=== PATIENT | male | born 1980 | race Two or more races ===

== ENCOUNTER 2023-08-26 22:08 | Emergency (ER) | payer BC, OTHER ==
[~2023-08-26] VITALS: Ht 175.3 cm; Wt 124.0 kg
[2023-08-26] MEDS: cloNIDine HCL 0.1 MG TAB PO ONE (22:34)
[2023-08-27] MEDS ORDERED: DOXY-286 PO (01:56)
[2023-08-27 03:26] VITALS: TEMP 98.5
[2023-08-27] MEDS: cloNIDine HCL 0.1 MG TAB PO ONE (03:40)
[2023-08-27] MEDS: cefTRIAXone SODIUM 250 MG VL IM ONE (03:41)
[2023-08-27 04:40] VITALS: BP 196/112; PULSE 71; RESP 19
[2023-08-27 04:54] VITALS: O2SAT 98
== END 2023-08-27 05:11 | disposition home or self-care (01) ==
LOC: ER 22:08
DX: N45.1 Epididymitis (principal); I10 Essential (primary) hypertension; Z79.2 Long term (current) use of antibiotics
CPT/HCPCS: 76870; 96372; 99285; J0696